=== PATIENT | female | born 1950 | race Caucasian/White ===

== ENCOUNTER 2020-07-30 14:22 | Inpatient (IN) ==
--- NOTE | 2020-07-30 15:22 | XRay Report ---
SINGLE VIEW CHEST CLINICAL HISTORY: Sepsis. FINDINGS: An AP, portable, upright chest radiograph is compared to study dated 01/21/2014. The examin ation is degraded by portable technique and patient rotation. The heart is top normal for projectio n. The mediastinal contour is within normal limits. Chronic interstitial thickening is similar to pre vious. There is mild bibasilar atelectasis. No airspace consolidation or large pleural effusion is id entified. No pneumothorax is seen. The skeletal structures are osteopenic. The bony thorax is grossly intact. IMPRESSION: No active disease in the chest. ACT 112: Negative or not required by law. Electronically signed by: Vaibhav Bliss M.D. 07/30/2020 3:21 PM
[2020-07-30] MEDS ORDERED: AMPICILLIN/SULBACTAM SOD 3,000 MG in 0.9 % SODIUM CHLORIDE 100 ML IV STA (15:32)
[2020-07-30 15:41] LABS: Hematocrit (blood only) 43.9 % (37-47); Hemoglobin 15.1 g/dL (12.0-16.0); Mean Corpuscular Hemoglobin 32.1 pg (25-34); Mean Corpuscular Hgb Conc 34.4 g/dL (32-36); Mean Corpuscular Volume 93.4 fL (80-100); Mean Platelet Volume 10.3 fL (7.4-10.4); Platelet Count 434 K/uL (130-400); RDW Coefficient of Variation 14.9 % (11.5-14.5); RDW Standard Deviation 51.3 fL (36.4-46.3); White Blood Count 22.22 K/uL (4.8-10.8)
[2020-07-30 15:43] LABS: Base Excess VBG -1.7 mEq/L; Oxygen Saturation VBG 89.6 %; pH VBG 7.37 (7.36-7.41)
[2020-07-30 15:57] LABS: Partial Thromboplastin Ratio 1.1; Partial Thromboplastin Time 28.2 Seconds (21.0-31.0); Prothrombin Time 9.8 Seconds (9.0-12.0)
[2020-07-30 16:04] LABS: Basophils # (auto) 0.09 K/uL (0-0.2); Basophils % (auto) 0.4 %; Echinocytes 1+; Immature Granulocytes # (auto) 0.27 K/uL (0.00-0.02); Immature Granulocytes % (auto) 1.2 %; Lymphocytes # (auto) 1.61 K/uL (1.2-3.4); Lymphocytes % (auto) 7.2 %; Monocytes # (auto) 1.53 K/uL (0.11-0.59); Monocytes % (auto) 6.9 %; Neutrophils # (auto) 18.72 K/uL (1.4-6.5); Neutrophils % (auto) 84.3 %
[2020-07-30 16:17] LABS: Alanine Aminotransferase 45 U/L (12-78); Albumin Globulin Ratio 0.5 (0.9-2); Albumin Level 3.1 gm/dl (3.4-5.0); Alkaline Phosphatase 76 U/L (45-117); Aspartate Aminotransferase 50 U/L (15-37); Bilirubin,Total 0.9 mg/dl (0.2-1); Blood Urea Nitrogen 9 mg/dl (7-18); Calcium 10.1 mg/dl (8.5-10.1); Carbon Dioxide 22 mmol/L (21-32); Chloride 99 mmol/L (98-107); Est GFR (African American) 131.2 ml/min; Est GFR (Non-African American) 113.2 ml/min; Globulin 5.6 gm/dl (2.5-4.0); Glucose 105 mg/dl (70-99); Magnesium 2.1 mg/dl (1.8-2.4); Potassium 3.8 mmol/L (3.5-5.1); Sodium 133 mmol/L (136-145); Total Protein 8.7 gm/dl (6.4-8.2); Troponin I < 0.015 ng/ml (0-0.045)
[2020-07-30] MEDS ORDERED: OPTIRAY 350 500ml IV ONE (17:37)
--- NOTE | 2020-07-30 18:18 | CT Scan Report ---
CHEST CTA for PULMONARY ARTERIES CT DOSE: 499.37 mGy.cm HISTORY: Cough. Shortness of breath. TECHNIQUE: Multiaxial CT images of the chest were performed following the intravenous administration of contrast to evaluate the pulmonary arteries. Maximal intensity projection images were also obtaine d. A dose lowering technique was utilized adhering to the principles of ALARA. COMPARISON STUDY: None. FINDINGS: Minimal anterior wedging within the mid thoracic spine vertebral body which is likely chron ic. Normal caliber thoracic aorta with no evidence for dissection. The heart is normal in size. No pl eural or pericardial effusions. Nondiagnostic evaluation of the bilateral lower lobe, right middle lo be, and lingular distal segmental and subsegmental pulmonary arteries due to the respiratory motion a rtifact. Otherwise, no filling defects within the remaining pulmonary arteries to suggest pulmonary e mbolus. Limited views of the upper abdomen demonstrate normal liver, spleen, and adrenal glands. Norm al esophagus. The heart is normal in size. There are few mildly enlarged right hilar lymph nodes. Thi s may be reactive. Dominant lymph node measures 1 cm in short axis diameter. A single enlarged right paratracheal lymph node measuring 11 mm. No pneumothorax. Small amount of mucoid material within the trachea and bilateral mainstem bronchi. Near-complete opacification of the bilateral distal lower lob e bronchi. There are small patchy groundglass densities within the left lower lobe. Patchy consolidat sabino density seen within the right lower lobe. This favors a pneumonia and could be secondary to aspir ation. No pneumothorax. A 4 mm groundglass nodule within the right upper lobe on image 148. A 4 mm no dule within the right upper lobe on image 133. IMPRESSION: 1. No evidence for pulmonary embolus with limitations as described above. 2. Opacified bilateral lower lobe bronchi with right greater than left patchy airspace opacities. Thi s favors a pneumonia and may be secondary to aspiration. 3. There are 2 subcentimeter indeterminate pulmonary nodules within the right upper lobe measuring 4 mm. Please refer to the chart below for recommended follow-up. 5. A single enlarged right paratracheal lymph node and mild right hilar lymphadenopathy. This may be reactive to the suspected pneumonia. Please refer to below summary of Fleischner criteria recommendations for follow-up of incidental CT n odules Amy Anguiano, Guidelines for management of small pulmonary nodules detected on CT scans: A sta tement from the Fleischner Society, Radiology 237: [phone].) SOLID NODULES Solitary nodule size: <6 mm * Low risk patients: no follow-up needed * high risk patients: optional CT at 12 months Solitary nodule size: 6-8 mm * Low risk patients: follow-up at 6-12 months, then consider further follow-up at 18-24 months * high risk patients: initial follow-up CT at 6-12 months and then at 18-24 months if no change Solitary nodule size: >8 mm * either low or high risk patients - consider follow-up CT at 3 months, and/or CT-PET, and/or biopsy Multiple nodules size: <6 mm * Low risk patients: no routine follow-up * high risk patients: optional CT at 12 months Multiple nodules size: 6-8 mm * Low risk patients: follow-up at 3-6 months, then consider further follow-up at 18-24 months * high risk patients: follow-up at 3-6 months, then at 18-24 months if no change Multiple nodules size: >8 mm * Low risk patients: follow-up at 3-6 months, then consider further follow-up at 18-24 months * high risk patients: follow-up at 3-6 months, then at 18-24 months if no change Note: newly detected indeterminate nodule in persons 35 years of age or older. * Low risk patients: minimal or absent history of smoking and/or other known risk factors * high risk patients: history of smoking or of other known risk factors (e.g. first degree relative with lung cancer, or exposure to asbestos, radon, uranium) * if a nodule up to 8 mm is partly solid or is ground glass further follow-up is required after 24 m onths to exclude possible slow growing adenocarcinoma (MARC) SUBSOLID NODULES Solitary pure ground-glass nodule * nodule size <6 mm - no CT follow-up required * nodule size >=6 mm - follow-up CT at 6-12 months, then every 2 years until 5 years Solitary part-solid nodule * nodule size <6 mm - no CT follow-up required * nodule size >=6 mm - follow-up CT at 3-6 months. If unchanged, and solid component remains <6 mm, then annual follow-up for 5 years Multiple subsolid nodules * nodule size <6 mm - follow-up CT at 3-6 months, consider further follow-up at 2 and 4 years if sta ble * nodule size >=6 mm - follow-up CT at 3-6 months, subsequent management based on the most suspiciou s nodule(s) ACT 112: Negative or not required by law. Electronically signed by: Everton Theodore M.D. 07/30/2020 6:16 PM
[2020-07-30] MEDS ORDERED: methylPREDNISolone 20 MG in SYRINGE 0 ML IV ONE (19:45)
--- NOTE | 2020-07-30 19:56 | Emergency Department Note ---
History of Present Illness General Chief complaint: Shortness of Breath/Dyspnea Stated complaint: SEVERE CONGEST,DIFF SLEEPING,SOB Time Seen by Provider: 07/30/20 14:47 History of Present Illness Provider complaint: Difficulty breathing Onset (ago): week(s) 1 Location: chest Associated symptoms: + cough and + shortness of breath; no chest pain, no fever/chills, no headaches, no nausea/vomiting, no rash, no seizure, no syncope and no weakness 70-year-old female presents emergency department with shortness of breath. Patient reports her symptoms were gone for last week. Patient reports that she started off with sinus congestion feels like it is moved down into her chest. Patient reports cough. She reports no fevers. She reports difficulty breathing. Patient does have a history of MS. No vomiting. Home Medications Medication Instructions Recorded Confirmed Type water for irrigation, sterile 1,000 ml IRRIGATION DAILY PRN ml 03/31/20 History alendronate 70 mg PO .WK 07/30/20 07/30/20 History ascorbic acid (vitamin C) 0 mg PO DAILY 07/30/20 07/30/20 History atorvastatin 40 mg PO DAILY 07/30/20 07/30/20 History diazepam 10 mg PO DAILY 07/30/20 07/30/20 History gabapentin 300 mg PO BID 07/30/20 07/30/20 History lutein 0 mg PO DAILY 07/30/20 07/30/20 History menthol-zinc oxide [Calmoseptine] 1 applic TOPICAL QID PRN 07/30/20 07/30/20 History polyethylene glycol 3350 See Rx Instructions .ROUTE .COMPLEX 07/30/20 History potassium citrate 10 meq PO TID 07/30/20 07/30/20 History tizanidine 2 mg PO DAILY 07/30/20 07/30/20 History Allergies Allergy/AdvReac Type Severity Reaction Status Date / Time Sulfa (Sulfonamide Allergy Unknown BACTRIM--RA Verified 07/30/20 17:01 Antibiotics) SH Past Med/Surg History Medical History (Updated 07/30/20 @ 20:05 by Yazan Barrett) Functional quadriplegia secondary to MS HLD (hyperlipidemia) Multiple sclerosis Suprapubic catheter Urinary retention Surgical History (Updated 07/30/20 @ 19:59 by Nicole Clark PA-C) History of bladder surgery Family History (Updated 07/30/20 @ 20:00 by Nicole Clark PA-C) Sister Schizophrenia Social History (Updated 07/30/20 @ 20:01 by Nicole Clark PA-C) Smoking Status: Never smoker Hx Alcohol Use: Yes Alcohol Intake Frequency: 2-4 x/Month Hx Substance Use: No Feels Safe at Home: Yes Review of Systems A total of 10 systems reviewed and were otherwise negative Physical Exam Vital Signs Vital Signs - 24 hr 07/30/20 14:31 07/30/20 14:48 07/30/20 15:30 Temperature 36.9 C Temperature Source Temporal Artery Scan Pulse Rate 106 H 107 H Pulse Rate from SpO2 Sensor 106 H Pulse Rhythm Respiratory Rate 21 17 Respiratory Effort / Characteristics Spontaneous Blood Pressure 113/77 132/88 Blood Pressure Mean 89 102 Pulse Oximetry 88 L 92 94 Oxygen Delivery Method Room Air Nasal Cannula Oxygen Flow Rate 2 Sepsis Recent Fever Within 48 Hours No Sepsis New/Unexplained Change in Mental Status No Sepsis Action Taken by Nursing Physician Notified 07/30/20 15:48 07/30/20 16:00 07/30/20 16:04 Temperature Temperature Source Pulse Rate 107 H 105 H 103 H Pulse Rate from SpO2 Sensor 107 H 105 H Pulse Rhythm Regular Respiratory Rate 21 19 18 Respiratory Effort / Characteristics Non-Labored Blood Pressure 129/79 Blood Pressure Mean 95 Pulse Oximetry 95 95 96 Oxygen Delivery Method Room Air Oxygen Flow Rate Sepsis Recent Fever Within 48 Hours Sepsis New/Unexplained Change in Mental Status Sepsis Action Taken by Nursing 07/30/20 16:30 07/30/20 16:36 07/30/20 17:00 Temperature Temperature Source Pulse Rate 103 H 104 H Pulse Rate from SpO2 Sensor 107 H 103 H Pulse Rhythm Respiratory Rate 19 18 Respiratory Effort / Characteristics Non-Labored Non-Labored Blood Pressure 124/89 118/94 Blood Pressure Mean 100 102 Pulse Oximetry 95 93 97 Oxygen Delivery Method Room Air Room Air Oxygen Flow Rate Sepsis Recent Fever Within 48 Hours Sepsis New/Unexplained Change in Mental Status Sepsis Action Taken by Nursing 07/30/20 17:30 07/30/20 18:00 07/30/20 18:15 Temperature Temperature Source Pulse Rate 103 H 104 H Pulse Rate from SpO2 Sensor 105 H 103 H 104 H Pulse Rhythm Respiratory Rate 16 19 18 Respiratory Effort / Characteristics Non-Labored Non-Labored Blood Pressure 131/80 120/82 Blood Pressure Mean 97 94 Pulse Oximetry 96 96 96 Oxygen Delivery Method Room Air Room Air Oxygen Flow Rate Sepsis Recent Fever Within 48 Hours Sepsis New/Unexplained Change in Mental Status Sepsis Action Taken by Nursing 07/30/20 18:30 07/30/20 19:00 07/30/20 19:30 Temperature Temperature Source Pulse Rate 96 H 106 H 106 H Pulse Rate from SpO2 Sensor 105 H 106 H 106 H Pulse Rhythm Respiratory Rate 17 17 18 Respiratory Effort / Characteristics Blood Pressure 127/90 122/69 107/81 Blood Pressure Mean 102 86 89 Pulse Oximetry 95 92 91 Oxygen Delivery Method Nasal Cannula Oxygen Flow Rate 2 Sepsis Recent Fever Within 48 Hours Sepsis New/Unexplained Change in Mental Status Sepsis Action Taken by Nursing Physical Exam GENERAL: She is oriented to person, place, and time. She appears well-developed and well-nourished. She does not appear distressed. HENT: Exam performed. -Head: Normocephalic and atraumatic. -Right Ear: External ear normal. No mastoid tenderness. -Left Ear: External ear normal. No mastoid tenderness. -Mouth/Throat: The oropharynx is clear and moist. No trismus in the jaw. No dental abscesses or uvula swelling. No oropharyngeal exudate or tonsillar abscesses. EYES: Conjunctivae and EOM are normal. Pupils are equal, round, and reactive to light. Right eye exhibits no discharge. Left eye exhibits no discharge. No scleral icterus. NECK: Normal range of motion. Neck supple. No JVD present. No spinous process tenderness present. No carotid bruit present. No rigidity. No tracheal deviation and normal range of motion present. No Brudzinski's sign and no Kernig's sign noted. CV: Tachycardic rate, regular rhythm, normal heart sounds and intact distal pulses. There is no peripheral edema. Palpable radial pulses bue. PULM/CHEST: Rhonchi bilaterally. Expiratory wheezes bilaterally. -Chest Wall: She exhibits no tenderness. ABD: The abdomen is soft. Bowel sounds are normal. She has no distension. No mass is present. There is no tenderness. There is no rebound, no guarding, no Bartlett's sign and no tenderness at McBurney's point. Rovsig negative MUSC/SKEL: Normal range of motion. There is no peripheral edema, tenderness or deformity. LYMPH: No cervical adenopathy. NEURO: She is alert and oriented to person, place, and time. She has normal strength. No cranial nerve deficit or sensory deficit. Coordination and gait normal. GCS eye subscore is 4. GCS verbal subscore is 5. GCS motor subscore is 6. Cerebellar tests wnl. SKIN: Skin is warm and dry. She is not diaphoretic. PSYCH: She has a normal mood and affect. Behavior is normal. Judgment and thought content normal. Course Course 1447: The patient was evaluated in room . A complete history and physical exam was performed Cardiac monitoring: An order was placed for continuous cardiac monitoring. The monitor shows a rate of 110 with sinus tachycardia rhythm Patient was found to be hypoxic on room air, patient was placed on supplemental oxygen via nasal cannula which improved her oxygen saturation. It is thought that the patient could have suffered from aspiration pneumonia given her lung sounds and her history of MS. Patient will be empirically treated with antibiotics given her hypoxia. 2000: Vital signs stable on supplemental oxygen. Labs show a leukocytosis of 22 .2. Imaging shows aspiration pneumonia. Patient treated with Unasyn. Patient will be admitted to the [facility] Hospitalist team Dr. Qureshi notified. Administered Medications Lactated Ringer's (Lr) 1,000 mls @ 500 mls/hr IV .Q2H ONE Stop: 07/30/20 21:59 Last Admin: 07/30/20 19:56 Dose: 500 mls/hr Documented by: [id number] Discontinued Medications Ampicillin Sodium/Sulbactam Sodium 3,000 mg/ Sodium Chloride 108 mls @ 200 mls/hr IV NOW STA; Protocol Stop: 07/30/20 16:04 Last Infusion: 07/30/20 16:53 Dose: 200 mls/hr Documented by: [id number] Admin: 07/30/20 15:58 Dose: 200 mls/hr Documented by: [id number] Methylprednisolone 20 mg/ (Syringe) 0.32 mls @ 1.5 mls/min IV ONE ONE Stop: 07/30/20 19:46 Last Admin: 07/30/20 19:46 Dose: 1.5 mls/min Documented by: [id number] Ioversol (Optiray 350 500ml) 114 ml IV ONCE ONE Stop: 07/30/20 17:38 Last Admin: 07/30/20 17:38 Dose: 1 ml Documented by: [id number] Critical Care Time Critical Care Time: Yes Total Critical Care Time: 69 I have personally spent greater than 69 minutes of critical care time in the direct management of this patient. This includes bedside care, interpretation of diagnostic studies, and testing, discussion with consultants, patient, and family members, and other required patient management activities. This 69 minutes is in excess of all separately billable procedures. Medical Decision Making Laboratory Data Result diagrams: 07/30/20 15:30 07/30/20 15:30 Lab Results 07/30/20 07/30/20 07/30/20 Range/Units 15:30 15:30 15:30 WBC (4.8-10.8) K/uL RBC (4.2-5.4) M/uL Hgb (12.0-16.0) g/dL Hct (37-47) % MCV (80-100) fL MCH (25-34) pg MCHC (32-36) g/dL RDW Std Deviation (36.4-46.3) fL RDW Coeff of David (11.5-14.5) % Plt Count (130-400) K/uL MPV (7.4-10.4) fL Immature Gran % (Auto) % Neut % (Auto) % Lymph % (Auto) % [place] % (Auto) % Eos % (Auto) % Baso % (Auto) % Neut # (Auto) (1.4-6.5) K/uL Lymph # (Auto) (1.2-3.4) K/uL [place] # (Auto) (0.11-0.59) K/uL Eos # (Auto) (0-0.5) K/uL Baso # (Auto) (0-0.2) K/uL Immature Gran # (Auto) (0.00-0.02) K/uL Echinocytes PT (9.0-12.0) Seconds INR (0.9-1.1) APTT (21.0-31.0) Seconds PTT Ratio VBG pH 7.37 (7.36-7.41) VBG pCO2 41 (38-50) mmHg VBG pO2 52 mmHg VBG HCO3 24 mmol/L VBG O2 Saturation 89.6 % VBG Base Excess -1.7 mEq/L Barometric Pressure 742.4 mm/Hg Sodium 133 L (136-145) mmol/L Potassium 3.8 (3.5-5.1) mmol/L Chloride 99 (98-107) mmol/L Carbon Dioxide 22 (21-32) mmol/L Anion Gap 12.0 H (3-11) BUN 9 (7-18) mg/dl Creatinine 0.33 L (0.6-1.2) mg/dl Est Cr Clr Drug Dosing Not Reportable Est GFR ( Amer) 131.2 ml/min Est GFR (Non-Af Amer) 113.2 ml/min BUN/Creatinine Ratio 28.0 H (10-20) Glucose 105 H (70-99) mg/dl Lactate (0.4-2.0) mmol/L Calcium 10.1 (8.5-10.1) mg/dl Magnesium 2.1 (1.8-2.4) mg/dl Total Bilirubin 0.9 (0.2-1) mg/dl AST 50 H (15-37) U/L ALT 45 (12-78) U/L Alkaline Phosphatase 76 (45-117) U/L Troponin I < 0.015 (0-0.045) ng/ml Total Protein 8.7 H (6.4-8.2) gm/dl Albumin 3.1 L (3.4-5.0) gm/dl Globulin 5.6 H (2.5-4.0) gm/dl Albumin/Globulin Ratio 0.5 L (0.9-2) Procalcitonin 0.19 (0-0.5) ng/ml COVID-19 Eval Order SARS-CoV-2 (PCR) (Negative) 07/30/20 07/30/20 07/30/20 Range/Units 15:30 15:30 15:30 WBC 22.22 H (4.8-10.8) K/uL RBC 4.70 (4.2-5.4) M/uL Hgb 15.1 (12.0-16.0) g/dL Hct 43.9 (37-47) % MCV 93.4 (80-100) fL MCH 32.1 (25-34) pg MCHC 34.4 (32-36) g/dL RDW Std Deviation 51.3 H (36.4-46.3) fL RDW Coeff of David 14.9 H (11.5-14.5) % Plt Count 434 H (130-400) K/uL MPV 10.3 (7.4-10.4) fL Immature Gran % (Auto) 1.2 % Neut % (Auto) 84.3 % Lymph % (Auto) 7.2 % [place] % (Auto) 6.9 % Eos % (Auto) 0.0 % Baso % (Auto) 0.4 % Neut # (Auto) 18.72 H (1.4-6.5) K/uL Lymph # (Auto) 1.61 (1.2-3.4) K/uL [place] # (Auto) 1.53 H (0.11-0.59) K/uL Eos # (Auto) 0.00 (0-0.5) K/uL Baso # (Auto) 0.09 (0-0.2) K/uL Immature Gran # (Auto) 0.27 H (0.00-0.02) K/uL Echinocytes 1+ PT 9.8 (9.0-12.0) Seconds INR 1.0 (0.9-1.1) APTT 28.2 (21.0-31.0) Seconds PTT Ratio 1.1 VBG pH (7.36-7.41) VBG pCO2 (38-50) mmHg VBG pO2 mmHg VBG HCO3 mmol/L VBG O2 Saturation % VBG Base Excess mEq/L Barometric Pressure mm/Hg Sodium (136-145) mmol/L Potassium (3.5-5.1) mmol/L Chloride (98-107) mmol/L Carbon Dioxide (21-32) mmol/L Anion Gap (3-11) BUN (7-18) mg/dl Creatinine (0.6-1.2) mg/dl Est Cr Clr Drug Dosing Est GFR ( Amer) ml/min Est GFR (Non-Af Amer) ml/min BUN/Creatinine Ratio (10-20) Glucose (70-99) mg/dl Lactate 1.1 (0.4-2.0) mmol/L Calcium (8.5-10.1) mg/dl Magnesium (1.8-2.4) mg/dl Total Bilirubin (0.2-1) mg/dl AST (15-37) U/L ALT (12-78) U/L Alkaline Phosphatase (45-117) U/L Troponin I (0-0.045) ng/ml Total Protein (6.4-8.2) gm/dl Albumin (3.4-5.0) gm/dl Globulin (2.5-4.0) gm/dl Albumin/Globulin Ratio (0.9-2) Procalcitonin (0-0.5) ng/ml COVID-19 Eval Order SARS-CoV-2 (PCR) (Negative) 07/30/20 07/30/20 Range/Units 15:57 15:57 WBC (4.8-10.8) K/uL RBC (4.2-5.4) M/uL Hgb (12.0-16.0) g/dL Hct (37-47) % MCV (80-100) fL MCH (25-34) pg MCHC (32-36) g/dL RDW Std Deviation (36.4-46.3) fL RDW Coeff of David (11.5-14.5) % Plt Count (130-400) K/uL MPV (7.4-10.4) fL Immature Gran % (Auto) % Neut % (Auto) % Lymph % (Auto) % [place] % (Auto) % Eos % (Auto) % Baso % (Auto) % Neut # (Auto) (1.4-6.5) K/uL Lymph # (Auto) (1.2-3.4) K/uL [place] # (Auto) (0.11-0.59) K/uL Eos # (Auto) (0-0.5) K/uL Baso # (Auto) (0-0.2) K/uL Immature Gran # (Auto) (0.00-0.02) K/uL Echinocytes PT (9.0-12.0) Seconds INR (0.9-1.1) APTT (21.0-31.0) Seconds PTT Ratio VBG pH (7.36-7.41) VBG pCO2 (38-50) mmHg VBG pO2 mmHg VBG HCO3 mmol/L VBG O2 Saturation % VBG Base Excess mEq/L Barometric Pressure mm/Hg Sodium (136-145) mmol/L Potassium (3.5-5.1) mmol/L Chloride (98-107) mmol/L Carbon Dioxide (21-32) mmol/L Anion Gap (3-11) BUN (7-18) mg/dl Creatinine (0.6-1.2) mg/dl Est Cr Clr Drug Dosing Est GFR ( Amer) ml/min Est GFR (Non-Af Amer) ml/min BUN/Creatinine Ratio (10-20) Glucose (70-99) mg/dl Lactate (0.4-2.0) mmol/L Calcium (8.5-10.1) mg/dl Magnesium (1.8-2.4) mg/dl Total Bilirubin (0.2-1) mg/dl AST (15-37) U/L ALT (12-78) U/L Alkaline Phosphatase (45-117) U/L Troponin I (0-0.045) ng/ml Total Protein (6.4-8.2) gm/dl Albumin (3.4-5.0) gm/dl Globulin (2.5-4.0) gm/dl Albumin/Globulin Ratio (0.9-2) Procalcitonin (0-0.5) ng/ml COVID-19 Eval Order Covid19 at [facility] SARS-CoV-2 (PCR) NEGATIVE (Negative) Imaging Data Radiologist's Impression: Chest X-Ray 07/30/20 14:49 SINGLE VIEW CHEST CLINICAL HISTORY: Sepsis. FINDINGS: An AP, portable, upright chest radiograph is compared to study dated 01/21/2014. The examination is degraded by portable technique and patient rotation. The heart is top normal for projection. The mediastinal contour is within normal limits. Chronic interstitial thickening is similar to previous. There is mild bibasilar atelectasis. No airspace consolidation or large pleural effusion is identified. No pneumothorax is seen. The skeletal structures are osteopenic. The bony thorax is grossly intact. IMPRESSION: No active disease in the chest. ACT 112: Negative or not required by law. Electronically signed by: Vaibhav Bliss M.D. 07/30/2020 3:21 PM Chest CTA 07/30/20 15:32 CHEST CTA for PULMONARY ARTERIES CT DOSE: 499.37 mGy.cm HISTORY: Cough. Shortness of breath. TECHNIQUE: Multiaxial CT images of the chest were performed following the intravenous administration of contrast to evaluate the pulmonary arteries. Maximal intensity projection images were also obtained. A dose lowering technique was utilized adhering to the principles of ALARA. COMPARISON STUDY: None. FINDINGS: Minimal anterior wedging within the mid thoracic spine vertebral body which is likely chronic. Normal caliber thoracic aorta with no evidence for dissection. The heart is normal in size. No pleural or pericardial effusions. Nondiagnostic evaluation of the bilateral lower lobe, right middle lobe, and lingular distal segmental and subsegmental pulmonary arteries due to the respiratory motion artifact. Otherwise, no filling defects within the remaining pulmonary arteries to suggest pulmonary embolus. Limited views of the upper abdomen demonstrate normal liver, spleen, and adrenal glands. Normal esophagus. The heart is normal in size. There are few mildly enlarged right hilar lymph nodes. This may be reactive. Dominant lymph node measures 1 cm in short axis diameter. A single enlarged right paratracheal lymph node measuring 11 mm. No pneumothorax. Small amount of mucoid material within the trachea and bilateral mainstem bronchi. Near-complete opacification of the bilateral distal lower lobe bronchi. There are small patchy groundglass densities within the left lower lobe. Patchy consolidative density seen within the right lower lobe. This favors a pneumonia and could be secondary to aspiration. No pneumothorax. A 4 mm groundglass nodule within the right upper lobe on image 148. A 4 mm nodule within the right upper lobe on image 133. IMPRESSION: 1. No evidence for pulmonary embolus with limitations as described above. 2. Opacified bilateral lower lobe bronchi with right greater than left patchy airspace opacities. This favors a pneumonia and may be secondary to aspiration. 3. There are 2 subcentimeter indeterminate pulmonary nodules within the right upper lobe measuring 4 mm. Please refer to the chart below for recommended follow-up. 5. A single enlarged right paratracheal lymph node and mild right hilar lymphadenopathy. This may be reactive to the suspected pneumonia. Please refer to below summary of Fleischner criteria recommendations for follow- up of incidental CT nodules (Angelina Anguiano, Guidelines for management of small pulmonary nodules detected on CT scans: A statement from the Fleischner Society, Radiology 237: [phone].) SOLID NODULES Solitary nodule size: <6 mm * Low risk patients: no follow-up needed * high risk patients: optional CT at 12 months Solitary nodule size: 6-8 mm * Low risk patients: follow-up at 6-12 months, then consider further follow-up at 18-24 months * high risk patients: initial follow-up CT at 6-12 months and then at 18-24 months if no change Solitary nodule size: >8 mm * either low or high risk patients - consider follow-up CT at 3 months, and/or CT-PET, and/or biopsy Multiple nodules size: <6 mm * Low risk patients: no routine follow-up * high risk patients: optional CT at 12 months Multiple nodules size: 6-8 mm * Low risk patients: follow-up at 3-6 months, then consider further follow-up at 18-24 months * high risk patients: follow-up at 3-6 months, then at 18-24 months if no change Multiple nodules size: >8 mm * Low risk patients: follow-up at 3-6 months, then consider further follow-up at 18-24 months * high risk patients: follow-up at 3-6 months, then at 18-24 months if no c hange Note: newly detected indeterminate nodule in persons 35 years of age or older. * Low risk patients: minimal or absent history of smoking and/or other known risk factors * high risk patients: history of smoking or of other known risk factors (e.g. first degree relative with lung cancer, or exposure to asbestos, radon, uranium) * if a nodule up to 8 mm is partly solid or is ground glass further follow-up is required after 24 months to exclude possible slow growing adenocarcinoma (MARC) SUBSOLID NODULES Solitary pure ground-glass nodule * nodule size <6 mm - no CT follow-up required * nodule size >=6 mm - follow-up CT at 6-12 months, then every 2 years until 5 years Solitary part-solid nodule * nodule size <6 mm - no CT follow-up required * nodule size >=6 mm - follow-up CT at 3-6 months. If unchanged, and solid component remains <6 mm, then annual follow-up for 5 years Multiple subsolid nodules * nodule size <6 mm - follow-up CT at 3-6 months, consider further follow-up at 2 and 4 years if stable * nodule size >=6 mm - follow-up CT at 3-6 months, subsequent management based on the most suspicious nodule(s) ACT 112: Negative or not required by law. Electronically signed by: Everton Theodore M.D. 07/30/2020 6:16 PM ECG Data Indication: + SOB/dyspnea Rate (beats per minute): 106 Rhythm: + sinus with SA ECG ST segments: + Normal ST segments Additional Comments: DC 184 QRS 120 QTc 549 MDM Narrative 1447: The patient was evaluated in room . A complete history and physical exam was performed Cardiac monitoring: An order was placed for continuous cardiac monitoring. The monitor shows a rate of 110 with sinus tachycardia rhythm Patient was found to be hypoxic on room air, patient was placed on supplemental oxygen via nasal cannula which improved her oxygen saturation. It is thought that the patient could have suffered from aspiration pneumonia given her lung sounds and her history of MS. Patient will be empirically treated with antibiotics given her hypoxia. 2000: Vital signs stable on supplemental oxygen. Labs show a leukocytosis of 22.2. Imaging shows aspiration pneumonia. Patient treated with Unasyn. Patient will be admitted to the [facility] Hospitalist team Dr. Qureshi notified. Impression & Plan Hypoxia, Aspiration pneumonia Discharge Plan Visit Data Chief Complaint: Shortness of Breath/Dyspnea Stated Complaint: SEVERE CONGEST,DIFF SLEEPING,SOB ED Provider: Yazan Barrett Discharge Problem: Hypoxia, Aspiration pneumonia Patient Disposition: Admitted As Inpatient Forms Stand Alone Forms: [facility] Prescriptions Prescriptions: No Action water for irrigation, sterile Solution 1,000 ml irrigation DAILY PRNRF: 0 tizanidine 2 mg tablet 2 mg PO DAILY RF: 0 gabapentin 300 mg capsule 300 mg PO BID RF: 0 alendronate 70 mg tablet 70 mg PO .WK RF: 0 diazepam 10 mg tablet 10 mg PO DAILY RF: 0 potassium citrate 10 mEq (1,080 mg) tablet extended release 10 meq PO TID RF: 0 atorvastatin 40 mg tablet 40 mg PO DAILY RF: 0 polyethylene glycol 3350 17 gram/dose powder See Rx Instructions .ROUTE .COMPLEX RF: 0 lutein 10 mg Tablet 0 mg PO DAILY RF: 0 ascorbic acid (vitamin C) 100 mg Tablet 0 mg PO DAILY RF: 0 Calmoseptine 0.44-20.6 % Ointment 1 applic TOPICAL QID PRN (Reason: .WOUND CARE) RF: 0 Referrals Referrals: Danielle Yadav DO [Primary Care Provider] - Discharge Problem: Aspiration pneumonia Qualifiers: Aspiration pneumonia type: unspecified Laterality: right Lung location: unspecified part of lung Qualified Code(s): J69.0 - Pneumonitis due to inhalation of food and vomit
[2020-07-30] MEDS ORDERED: LACTATED RINGER'S 1,000 ML IV ONE (20:00)
--- NOTE | 2020-07-30 20:04 | History & Physical Report ---
Date of Service July 30, 2020 Assessment & Plan (1) Pneumonia: (2) Multiple sclerosis: (3) Functional quadriplegia secondary to MS: (4) HLD (hyperlipidemia): History and PE completed by myself, Nicole Clark PA-C. Assessment and plan per Dr Bolanos. See addendum History of Present Illness Chief Complaint: SOB Primary Care Provider: Danielle Yadav DO Patient is 70 y/o F with PMH MS with some cognitive impairment, essentially quadriplegic secondary to MS, neurogenic bladder has suprapubic catheter, HLD, depression presented to ER for shortness of breath. Reports that 5 days ago she started with rhinorrhea which progressed to nasal congestion and sinus pressure. Then started with productive cough of clear sputum. Past 2 days with noted shortness of breath which worsened today. Patient states was around her grandson who had URI symptoms as well. Patient reports 2 doses COVID-19 vaccine. Denies any noted fever or chills. Patient has noted progressive problems with swallowing dry foods over the last several years with her MS, however she denies any recent choking. Denies diaphoresis, N/V/D, ESPINOZA, dizziness, syncope, vision changes, neck pain, CP, palpitations, hemoptysis, otalgia, abdominal pain, extremity edema, rashes, noted hematuria or cloudy urine. In ER patient afebrile, P: 106, BP 113/77, 88% on room air up to 95% on 2 L. WBC: 22, lactate: 1.1, procalcitonin: 0.19, negative COVID-19. CTA chest: No evidence for pulmonary embolus. Opacified bilateral lower lobe bronchi with right greater than left patchy airspace opacities. In ER was given Unasyn. Patient will be admitted for further treatment and management. Allergies Allergy/AdvReac Type Severity Reaction Status Date / Time Sulfa (Sulfonamide Allergy Unknown BACTRIM--RA Verified 07/30/20 17:01 Antibiotics) SH Home Medications Medication Instructions Recorded Confirmed Type water for irrigation, sterile 1,000 ml IRRIGATION DAILY PRN ml 03/31/20 History alendronate 70 mg PO .WK 07/30/20 07/30/20 History ascorbic acid (vitamin C) 0 mg PO DAILY 07/30/20 07/30/20 History atorvastatin 40 mg PO DAILY 07/30/20 07/30/20 History diazepam 10 mg PO HS 07/30/20 07/30/20 History gabapentin 300 mg PO BID 07/30/20 07/30/20 History lutein 0 mg PO DAILY 07/30/20 07/30/20 History menthol-zinc oxide [Calmoseptine] 1 applic TOPICAL QID PRN 07/30/20 07/30/20 History polyethylene glycol 3350 See Rx Instructions .ROUTE .COMPLEX 07/30/20 History potassium citrate 10 meq PO TID 07/30/20 07/30/20 History tizanidine 2 mg PO DAILY 07/30/20 07/30/20 History Past Med/Surg History Medical History (Updated 07/30/20 @ 20:05 by Yazan Barrett) Functional quadriplegia secondary to MS HLD (hyperlipidemia) Multiple sclerosis Suprapubic catheter Urinary retention Surgical History (Updated 07/30/20 @ 19:59 by Nicole Clark PA-C) History of bladder surgery Family History (Updated 07/30/20 @ 20:00 by Nicole Clark PA-C) Sister Schizophrenia Social History (Updated 07/30/20 @ 20:01 by Nicole Clark PA-C) Smoking Status: Never smoker Second Hand Exposure: No; Do You Dip or Chew Tobacco: No; Hx Alcohol Use: Yes Alcohol type: beer Alcohol Intake Frequency: 2-4 x/Month Hx Substance Use: No Preferred Language: Ethiopian Urologist Physician Required: No Beliefs That Will Affect Care: None Current Living Situation: Spouse Feels Safe at Home: Yes Safety Concerns: Feels Safe At This Time Assistive Devices: Glasses, Mechanical Lift and Wheelchair Review of Systems Review of Systems: All systems reviewed & are unremarkable except as noted in HPI & below Physical Exam Physical Exam: General: no distress, WDWN Head: normocephalic, atraumatic Eyes:conjunctiva non-injected, anicteric ENT: normal inspection external ears, nose, mucous membranes moist Neck: supple, trachea midline, non-tender Lungs: clear, no respiratory distress on 2 L oxygen via NC, +diminished breath sounds right base CV: RRR, no murmur, no pretibial edema Abd: +suprapubic cath in place, normal BS, soft, non-tender Ext: no cyanosis, no calf tenderness Neuro: A&O x 3, +contracted hands, +weakness bilateral arms and legs (chronic from MS), normal affect Skin: warm, dry Results & Data Results & Data ([facility]) Vital Signs (Past 12 Hours) Vital Signs Temp Pulse Resp BP Pulse Ox 07/30/20 19:30 106 H 18 107/81 91 07/30/20 19:00 106 H 17 122/69 92 07/30/20 18:30 96 H 17 127/90 95 07/30/20 18:15 104 H 18 96 07/30/20 18:00 103 H 19 120/82 96 07/30/20 17:30 16 131/80 96 07/30/20 17:00 104 H 18 118/94 97 07/30/20 16:36 103 H 19 124/89 93 07/30/20 16:30 95 07/30/20 16:04 103 H 18 96 07/30/20 16:00 105 H 19 129/79 95 07/30/20 15:48 107 H 21 95 07/30/20 15:30 107 H 17 132/88 94 07/30/20 14:48 92 07/30/20 14:31 36.9 C 106 H 21 113/77 88 L Laboratory Results Short CBC 07/30/20 Range/Units 15:30 WBC 22.22 H (4.8-10.8) K/uL Hgb 15.1 (12.0-16.0) g/dL Hct 43.9 (37-47) % Plt Count 434 H (130-400) K/uL BMP 07/30/20 15:30 Sodium 133 L Potassium 3.8 Chloride 99 Carbon Dioxide 22 BUN 9 Creatinine 0.33 L Glucose 105 H Calcium 10.1 Cardiac Enzymes 07/30/20 Range/Units 15:30 Troponin I < 0.015 (0-0.045) ng/ml Liver Function 07/30/20 Range/Units 15:30 Total Bilirubin 0.9 (0.2-1) mg/dl AST 50 H (15-37) U/L ALT 45 (12-78) U/L Alkaline Phosphatase 76 (45-117) U/L Albumin 3.1 L (3.4-5.0) gm/dl Diagnostic Findings Chest X-Ray 07/30/20 14:49 SINGLE VIEW CHEST CLINICAL HISTORY: Sepsis. FINDINGS: An AP, portable, upright chest radiograph is compared to study dated 01/21/2014. The examination is degraded by portable technique and patient rotation. The heart is top normal for projection. The mediastinal contour is within normal limits. Chronic interstitial thickening is similar to previous. There is mild bibasilar atelectasis. No airspace consolidation or large pleural effusion is identified. No pneumothorax is seen. The skeletal structures are osteopenic. The bony thorax is grossly intact. IMPRESSION: No active disease in the chest. ACT 112: Negative or not required by law. Electronically signed by: Vaibhav Bliss M.D. 07/30/2020 3:21 PM Chest CTA 07/30/20 15:32 CHEST CTA for PULMONARY ARTERIES CT DOSE: 499.37 mGy.cm HISTORY: Cough. Shortness of breath. TECHNIQUE: Multiaxial CT images of the chest were performed following the intravenous administration of contrast to evaluate the pulmonary arteries. Maximal intensity projection images were also obtained. A dose lowering technique was utilized adhering to the principles of ALARA. COMPARISON STUDY: None. FINDINGS: Minimal anterior wedging within the mid thoracic spine vertebral body which is likely chronic. Normal caliber thoracic aorta with no evidence for dissection. The heart is normal in size. No pleural or pericardial effusions. Nondiagnostic evaluation of the bilateral lower lobe, right middle lobe, and lingular distal segmental and subsegmental pulmonary arteries due to the respiratory motion artifact. Otherwise, no filling defects within the remaining pulmonary arteries to suggest pulmonary embolus. Limited views of the upper abdomen demonstrate normal liver, spleen, and adrenal glands. Normal esophagus. The heart is normal in size. There are few mildly enlarged right hilar lymph nodes. This may be reactive. Dominant lymph node measures 1 cm in short axis diameter. A single enlarged right paratracheal lymph node measuring 11 mm. No pneumothorax. Small amount of mucoid material within the trachea and bilateral mainstem bronchi. Near-complete opacification of the bilateral distal lower lobe bronchi. There are small patchy groundglass densities within the left lower lobe. Patchy consolidative density seen within the right lower lobe. This favors a pneumonia and could be secondary to aspiration. No pneumothorax. A 4 mm groundglass nodule within the right upper lobe on image 148. A 4 mm nodule within the right upper lobe on image 133. IMPRESSION: 1. No evidence for pulmonary embolus with limitations as described above. 2. Opacified bilateral lower lobe bronchi with right greater than left patchy airspace opacities. This favors a pneumonia and may be secondary to aspiration. 3. There are 2 subcentimeter indeterminate pulmonary nodules within the right upper lobe measuring 4 mm. Please refer to the chart below for recommended follow-up. 5. A single enlarged right paratracheal lymph node and mild right hilar lymph adenopathy. This may be reactive to the suspected pneumonia. Please refer to below summary of Fleischner criteria recommendations for follow- up of incidental CT nodules (Angelina Anguiano, Guidelines for management of small pulmonary nodules detected on CT scans: A statement from the Fleischner Society, Radiology 237: [phone].) SOLID NODULES Solitary nodule size: <6 mm * Low risk patients: no follow-up needed * high risk patients: optional CT at 12 months Solitary nodule size: 6-8 mm * Low risk patients: follow-up at 6-12 months, then consider further follow-up at 18-24 months * high risk patients: initial follow-up CT at 6-12 months and then at 18-24 months if no change Solitary nodule size: >8 mm * either low or high risk patients - consider follow-up CT at 3 months, and/or CT-PET, and/or biopsy Multiple nodules size: <6 mm * Low risk patients: no routine follow-up * high risk patients: optional CT at 12 months Multiple nodules size: 6-8 mm * Low risk patients: follow-up at 3-6 months, then consider further follow-up at 18-24 months * high risk patients: follow-up at 3-6 months, then at 18-24 months if no change Multiple nodules size: >8 mm * Low risk patients: follow-up at 3-6 months, then consider further follow-up at 18-24 months * high risk patients: follow-up at 3-6 months, then at 18-24 months if no change Note: newly detected indeterminate nodule in persons 35 years of age or older. * Low risk patients: minimal or absent history of smoking and/or other known risk factors * high risk patients: history of smoking or of other known risk factors (e.g. first degree relative with lung cancer, or exposure to asbestos, radon, uranium) * if a nodule up to 8 mm is partly solid or is ground glass further follow-up is required after 24 months to exclude possible slow growing adenocarcinoma (MARC) SUBSOLID NODULES Solitary pure ground-glass nodule * nodule size <6 mm - no CT follow-up required * nodule size >=6 mm - follow-up CT at 6-12 months, then every 2 years until 5 years Solitary part-solid nodule * nodule size <6 mm - no CT follow-up required * nodule size >=6 mm - follow-up CT at 3-6 months. If unchanged, and solid component remains <6 mm, then annual follow-up for 5 years Multiple subsolid nodules * nodule size <6 mm - follow-up CT at 3-6 months, consider further follow-up at 2 and 4 years if stable * nodule size >=6 mm - follow-up CT at 3-6 months, subsequent management based on the most suspicious nodule(s) ACT 112: Negative or not required by law. Electronically signed by: Everton Theodore M.D. 07/30/2020 6:16 PM Supervising Physician Co-Signing Physician Notes IM ATTENDING : Patient seen and examined. History obtained from patient and records. Preceding documentation by Ms. Nicole Clark PA-C reviewed. FINAL ASSESSMENT AND PLAN as follows : Severe sepsis SIRS plus hypoxemia secondary to aspiration pneumonia SPMS, slow progression as per patient Neurogenic bladder secondary to MS with chronic suprapubic catheter Mood disorder at baseline Medical telemetry Supplemental O2 CS, Unasyn followed by Augmentin course IVF Solu-Medrol 1 dose now, nebs given bronchospastic wheezing causing hypoxemia Aspiration precautions, Swallow eval DVT prophylaxis per Lovenox subcu DNR Patient request that her be updated of plan of care. Mr. Hernandez Black, contact number [phone]. Text document was generated using [employer] voice recognition software. It may contain grammatical or spelling errors. Kindly contact undersigned for clarification of any documentation item in question.
[2020-07-30] MEDS ORDERED: XOPENEX/ATROVENT 1.25mg/0.5MG NEB COMBO NEB STA (20:21)
[2020-07-30] MEDS ORDERED: LEVALBUTEROL 1.25MG/0.5ML NEB INH STA (20:31)
[2020-07-30] MEDS ORDERED: IPRATROPIUM BROMIDE NEB SOLN 0.02% 2.5 ML VIAL INH STA (20:31)
[2020-07-30] MEDS ORDERED: ACETAMINOPHEN 325 MG TAB PO PRN (21:44)
[2020-07-30] MEDS ORDERED: PROMETHAZINE HCL 12.5 MG in SODIUM CHLORIDE 0.9% 50 ML IV PRN (21:44)
[2020-07-30] MEDS ORDERED: XOPENEX/ATROVENT 1.25mg/0.5MG NEB COMBO NEB PRN (21:44)
[2020-07-30] MEDS ORDERED: NSS + 20MEQ KCL 20 MEQ/1,000 ML BAG IV ONE (22:00)
[2020-07-30] MEDS: GABAPENTIN 300 MG CAP PO SCH (22:43)
[2020-07-30] MEDS: diazePAM 5 MG TABLET PO SCH (22:43)
[2020-07-30] MEDS: AMOXICILLIN/CLAVULANATE 875 MG TAB PO SCH (22:43)
[2020-07-30] MEDS: LEVALBUTEROL 1.25MG/0.5ML NEB INH PRN (23:42)
[2020-07-30] MEDS: IPRATROPIUM BROMIDE NEB SOLN 0.02% 2.5 ML VIAL INH PRN (23:43)
[2020-07-31 06:03] LABS: Hematocrit (blood only) 39.2 % (37-47); Hemoglobin 13.4 g/dL (12.0-16.0); Mean Corpuscular Hemoglobin 31.5 pg (25-34); Mean Corpuscular Hgb Conc 34.2 g/dL (32-36); Mean Platelet Volume 10.2 fL (7.4-10.4); Platelet Count 433 K/uL (130-400); RDW Coefficient of Variation 15.2 % (11.5-14.5); RDW Standard Deviation 51.4 fL (36.4-46.3); Red Blood Count 4.26 M/uL (4.2-5.4); White Blood Count 22.67 K/uL (4.8-10.8)
[2020-07-31] MEDS: LEVALBUTEROL 1.25MG/0.5ML NEB INH PRN ×2 (06:09→14:59)
[2020-07-31] MEDS: IPRATROPIUM BROMIDE NEB SOLN 0.02% 2.5 ML VIAL INH PRN ×2 (06:09→14:59)
[2020-07-31 06:33] LABS: Basophils # (auto) 0.09 K/uL (0-0.2); Basophils % (auto) 0.4 %; Immature Granulocytes # (auto) 0.34 K/uL (0.00-0.02); Immature Granulocytes % (auto) 1.5 %; Lymphocytes # (auto) 1.12 K/uL (1.2-3.4); Lymphocytes % (auto) 4.9 %; Monocytes # (auto) 0.59 K/uL (0.11-0.59); Monocytes % (auto) 2.6 %; Neutrophils # (auto) 20.53 K/uL (1.4-6.5); Neutrophils % (auto) 90.6 %
[2020-07-31 06:42] LABS: BUN Creatinine Ratio 25.2 (10-20); Calcium 9.6 mg/dl (8.5-10.1); Creatinine Clr Calc Pharmacy 153.4 ml/min; Est GFR (African American) 129.9 ml/min; Est GFR (Non-African American) 112.1 ml/min; Potassium 4.5 mmol/L (3.5-5.1)
[2020-07-31] MEDS: AMOXICILLIN/CLAVULANATE 875 MG TAB PO SCH ×2 (08:39→17:32)
[2020-07-31] MEDS: tiZANidine HCL 4 MG TABLET PO SCH (08:40)
[2020-07-31] MEDS: GABAPENTIN 300 MG CAP PO SCH ×2 (08:40→20:58)
[2020-07-31] MEDS: ATORVASTATIN 40 MG TAB PO SCH (08:40)
[2020-07-31] MEDS: ENOXAPARIN INJ 40 MG/0.4 ML SYR SQ SCH (08:41)
[2020-07-31] MEDS ORDERED: AUGMENTIN CONSULT PHARMACY SCH (09:00)
[2020-07-31] MEDS ORDERED: SODIUM CHLORIDE 0.65% NA SOLN 45 ML (OCEAN) PRN (14:45)
--- NOTE | 2020-07-31 15:17 | Hospitalist Progress Note ---
Date of Service July 31, 2020 Assessment & Plan (1) Pneumonia: Present on admission with worsening SOB associated with productive cough and congestion CT chest showed no evidence for pulmonary embolus. Opacified bilateral lower lobe bronchi with right greater than left patchy airspace opacities. Elevated WBC on admission Received IV Unasyn and IV solumerol in the ER Currently on Amoxicillin BID, Will continue Blood cx pending Continue Neb treatment Will add guaifenesin and nasal saline Will send for sputum cx Continue oxygen supplement for now Speech consulted recommended regular diet, with extra time for slow rate intake Continue monitor closely (2) Multiple sclerosis: (3) Functional quadriplegia secondary to MS: Stable (4) HLD (hyperlipidemia): Stable DVT px on Lovenox CODE status DNR Admission and Anticipated Discharge Date Admission Date: July 30, 2020 Subjective Pt was seen and examined for follow up of cough and SOB Lying in bed with no distress eating her meal Pt said that she continues to have a yellowish productive cough She continues to require oxygen supplement Denies any chest pain, palpitation, dizziness and fever Review of Systems Review of Systems: All systems reviewed & are unremarkable except as noted in Subjective Physical Exam Physical Exam: General- No acute distress Head- atraumatic Eyes- PERRL, EOMI, ENT- oropharynx clear Neck- supple, no JVD Lungs- +diminished BS Heart- regular rhythm; no murmur Abdomen- normal bowel sounds, soft, nontender Extremities- no calf tenderness Neuro- alert, oriented x 3; PERRL, EOMI; no facial palsy; no dysarthria Skin- warm & dry Results & Data Results & Data ([facility]) Vital Signs (Past 12 Hours) Vital Signs Temp Pulse Pulse Resp BP Pulse Ox 07/31/20 15:02 111 H 20 95 07/31/20 12:00 37.4 C 106 H 20 122/78 92 07/31/20 07:56 37.3 C 108 H 20 126/77 91 07/31/20 06:12 99 H 15 93 07/31/20 04:00 36.7 C 94 H 20 114/77 92
[2020-07-31] MEDS: SODIUM CHLORIDE 0.65% NA SOLN 45 ML (OCEAN) SCH (17:32)
[2020-07-31] MEDS: diazePAM 5 MG TABLET PO SCH (20:58)
--- NOTE | 2020-07-31 23:59 | Electrocardiogram Report ---
Test Reason : Blood Pressure : / mmHG Vent. Rate : 106 BPM Atrial Rate : 106 BPM P-R Int : 192 ms QRS Dur : 130 ms QT Int : 414 ms P-R-T Axes : 061 -68 044 degrees QTc Int : 549 ms Sinus tachycardia Left axis deviation Right bundle branch block Inferior infarct , age undetermined Abnormal ECG When compared with ECG of 21-JAN-2014 16:14, Vent. rate has increased BY 46 BPM Right bundle branch block is now Present Minimal criteria for Anterior infarct are no longer Present Inferior infarct is now Present Confirmed by Norbert Banks ([id number]) on 07/31/2020 11:58:50 PM Referred By: REFERRED SELF Confirmed By:Norbert Banks
[2020-08-01] MEDS: SODIUM CHLORIDE 0.65% NA SOLN 45 ML (OCEAN) SCH ×4 (06:14→17:50)
[2020-08-01] MEDS: AMOXICILLIN/CLAVULANATE 875 MG TAB PO SCH ×2 (08:25→17:39)
[2020-08-01] MEDS: GABAPENTIN 300 MG CAP PO SCH ×2 (08:25→20:09)
[2020-08-01] MEDS: guaiFENesin SUGAR FREE 200 MG/10 ML UDC PO PRN (08:26)
[2020-08-01] MEDS: ENOXAPARIN INJ 40 MG/0.4 ML SYR SQ SCH (08:26)
[2020-08-01] MEDS: tiZANidine HCL 4 MG TABLET PO SCH ×2 (08:26→20:09)
[2020-08-01] MEDS: ATORVASTATIN 40 MG TAB PO SCH (08:26)
[2020-08-01] MEDS ORDERED: Nursing to Pharmacy Communication SCH ×2 (08:30)
[2020-08-01] MEDS: LEVALBUTEROL 1.25MG/0.5ML NEB INH PRN ×2 (08:30→15:57)
[2020-08-01] MEDS: IPRATROPIUM BROMIDE NEB SOLN 0.02% 2.5 ML VIAL INH PRN ×2 (08:31→15:57)
[2020-08-01 08:46] LABS: Hematocrit (blood only) 39.8 % (37-47); Mean Corpuscular Hemoglobin 30.8 pg (25-34); Mean Corpuscular Hgb Conc 32.7 g/dL (32-36); Mean Corpuscular Volume 94.3 fL (80-100); Mean Platelet Volume 10.1 fL (7.4-10.4); Platelet Count 501 K/uL (130-400); RDW Coefficient of Variation 15.6 % (11.5-14.5); Red Blood Count 4.22 M/uL (4.2-5.4)
[2020-08-01 09:06] LABS: BUN Creatinine Ratio 55.7 (10-20); Calcium 9.7 mg/dl (8.5-10.1); Creatinine Clr Calc Pharmacy 221.1 ml/min; Est GFR (African American) 145.7 ml/min; Est GFR (Non-African American) 125.7 ml/min; Potassium 3.8 mmol/L (3.5-5.1)
[2020-08-01] MEDS ORDERED: ACETYLCYSTEINE 10% INHAL SOLN 4 ML **DISPENSED BY RESP. INH PRN (10:43)
--- NOTE | 2020-08-01 15:15 | Hospitalist Progress Note ---
Date of Service August 01, 2020 Assessment & Plan (1) Pneumonia: Present on admission with worsening SOB associated with productive cough and congestion CT chest showed no evidence for pulmonary embolus. Opacified bilateral lower lobe bronchi with right greater than left patchy airspace opacities. Elevated WBC on admission Received IV Unasyn and IV solumerol in the ER Continue Amoxicillin BID Blood cx no growth Continue Neb treatment, guaifenesin, Hypertonic nasal saline, flutter valve, Chest PT Continue oxygen supplement for now Speech consulted recommended regular diet, with extra time for slow rate intake If no improvement, consider pulm consult Continue monitor closely (2) Multiple sclerosis: (3) Functional quadriplegia secondary to MS: Stable (4) HLD (hyperlipidemia): Stable DVT px on Lovenox CODE status DNR Admission and Anticipated Discharge Date Admission Date: July 30, 2020 Subjective Pt was seen and examined for follow up of cough and SOB Pt said that she is not feeling well because she feels very congested She said that she feels weak She wants to go home because she believes that she will get better faster at home She continue to require oxygen supplement Denies any chest pain, palpitation, dizziness and fever Review of Systems Review of Systems: All systems reviewed & are unremarkable except as noted in Subjective Physical Exam Physical Exam: General- No acute distress Head- atraumatic Eyes- PERRL, EOMI, ENT- oropharynx clear Neck- supple, no JVD Lungs- +Coarse BS Heart- regular rhythm; no murmur Abdomen- normal bowel sounds, soft, nontender Extremities- no calf tenderness Neuro- alert, oriented x 3; PERRL, EOMI; no facial palsy; no dysarthria Skin- warm & dry Results & Data Results & Data ([facility]) Vital Signs (Past 12 Hours) Vital Signs Temp Pulse Resp BP Pulse Ox 08/01/20 11:49 36.7 C 93 H 22 126/84 91 08/01/20 08:31 101 H 18 90 08/01/20 07:00 37.0 C 99 H 20 116/76 91 08/01/20 03:25 36.9 C 90 20 113/72 91
[2020-08-01] MEDS: diazePAM 5 MG TABLET PO SCH (20:08)
[2020-08-01] MEDS: SODIUM CHLOR 7% 4 ML NEB NEB SCH (20:15)
[2020-08-02] MEDS: SODIUM CHLORIDE 0.65% NA SOLN 45 ML (OCEAN) SCH ×4 (01:04→17:32)
[2020-08-02] MEDS: SODIUM CHLOR 7% 4 ML NEB NEB SCH ×2 (06:57→19:44)
[2020-08-02] MEDS: IPRATROPIUM BROMIDE NEB SOLN 0.02% 2.5 ML VIAL INH PRN ×2 (06:57→19:27)
[2020-08-02] MEDS: LEVALBUTEROL 1.25MG/0.5ML NEB INH PRN ×2 (06:58→19:27)
[2020-08-02 08:12] LABS: Hematocrit (blood only) 38.9 % (37-47); Hemoglobin 12.9 g/dL (12.0-16.0); Mean Corpuscular Hemoglobin 31.2 pg (25-34); Mean Corpuscular Hgb Conc 33.2 g/dL (32-36); Mean Corpuscular Volume 94.2 fL (80-100); Mean Platelet Volume 9.5 fL (7.4-10.4); Platelet Count 477 K/uL (130-400); RDW Coefficient of Variation 15.6 % (11.5-14.5); RDW Standard Deviation 53.9 fL (36.4-46.3); Red Blood Count 4.13 M/uL (4.2-5.4); White Blood Count 16.97 K/uL (4.8-10.8)
[2020-08-02] MEDS: ATORVASTATIN 40 MG TAB PO SCH (08:47)
[2020-08-02] MEDS: AMOXICILLIN/CLAVULANATE 875 MG TAB PO SCH ×2 (08:47→17:32)
[2020-08-02] MEDS: ENOXAPARIN INJ 40 MG/0.4 ML SYR SQ SCH (08:48)
[2020-08-02] MEDS: GABAPENTIN 300 MG CAP PO SCH ×2 (08:48→20:23)
--- NOTE | 2020-08-02 16:45 | Hospitalist Progress Note ---
Date of Service August 02, 2020 Assessment & Plan (1) Pneumonia: Present on admission with worsening SOB associated with productive cough and congestion CT chest showed no evidence for pulmonary embolus. Opacified bilateral lower lobe bronchi with right greater than left patchy airspace opacities. Elevated WBC on admission Received IV Unasyn and IV solumerol in the ER Continue Amoxicillin BID Blood cx no growth Continue Neb treatment, guaifenesin, Hypertonic nasal saline, flutter valve, Chest PT Continue oxygen supplement for now Speech consulted recommended regular diet, with extra time for slow rate intake If no improvement, consider pulm consult Continue monitor closely (2) Multiple sclerosis: (3) Functional quadriplegia secondary to MS: Stable (4) HLD (hyperlipidemia): Stable DVT px on Lovenox CODE status DNR Admission and Anticipated Discharge Date Admission Date: July 30, 2020 Subjective Pt was seen and examined for follow up of cough and SOB Pt said that she feels a little better today She continues to require oxygen supplement Spoke to at bedside today and would like PT/OT to continue to work with patient Denies any chest pain, palpitation, dizziness and fever Review of Systems Review of Systems: All systems reviewed & are unremarkable except as noted in Subjective Physical Exam Physical Exam: General- No acute distress Head- atraumatic Eyes- PERRL, EOMI, ENT- oropharynx clear Neck- supple, no JVD Lungs- +Coarse BS Heart- regular rhythm; no murmur Abdomen- normal bowel sounds, soft, nontender Extremities- no calf tenderness Neuro- alert, oriented x 3; PERRL, EOMI; no facial palsy; no dysarthria Skin- warm & dry Results & Data Results [facility] ([facility]) Vital Signs (Past 12 Hours) Vital Signs Temp Pulse Resp BP Pulse Ox 08/02/20 15:12 37.6 C H 101 H 20 108/72 94 08/02/20 07:10 37.7 C H 95 H 20 101/66 90 08/02/20 07:05 93 H 18 90 08/02/20 06:18 102/67
[2020-08-02] MEDS: guaiFENesin SUGAR FREE 200 MG/10 ML UDC PO PRN (17:32)
[2020-08-02] MEDS: ACETYLCYSTEINE 10% INHAL SOLN 4 ML **DISPENSED BY RESP. INH SCH (19:29)
[2020-08-02] MEDS: diazePAM 5 MG TABLET PO SCH (20:22)
[2020-08-02] MEDS: tiZANidine HCL 4 MG TABLET PO SCH (20:23)
[2020-08-03] MEDS: SODIUM CHLORIDE 0.65% NA SOLN 45 ML (OCEAN) SCH ×4 (01:29→17:52)
[2020-08-03] MEDS: ACETYLCYSTEINE 10% INHAL SOLN 4 ML **DISPENSED BY RESP. INH SCH (07:14)
[2020-08-03] MEDS: SODIUM CHLOR 7% 4 ML NEB NEB SCH ×2 (07:15→19:29)
[2020-08-03] MEDS: IPRATROPIUM BROMIDE NEB SOLN 0.02% 2.5 ML VIAL INH PRN (07:15)
[2020-08-03] MEDS: LEVALBUTEROL 1.25MG/0.5ML NEB INH PRN ×2 (07:15→19:29)
[2020-08-03] MEDS: AMOXICILLIN/CLAVULANATE 875 MG TAB PO SCH ×2 (08:22→16:25)
[2020-08-03] MEDS: GABAPENTIN 300 MG CAP PO SCH ×2 (08:22→20:29)
[2020-08-03] MEDS: ENOXAPARIN INJ 40 MG/0.4 ML SYR SQ SCH (08:23)
[2020-08-03] MEDS: guaiFENesin SUGAR FREE 200 MG/10 ML UDC PO PRN (08:23)
[2020-08-03] MEDS: ATORVASTATIN 40 MG TAB PO SCH (08:23)
[2020-08-03 10:42] LABS: Hematocrit (blood only) 38.4 % (37-47); Hemoglobin 12.7 g/dL (12.0-16.0); Mean Corpuscular Hemoglobin 30.8 pg (25-34); Mean Corpuscular Hgb Conc 33.1 g/dL (32-36); Mean Platelet Volume 9.7 fL (7.4-10.4); Platelet Count 386 K/uL (130-400); RDW Coefficient of Variation 15.4 % (11.5-14.5); RDW Standard Deviation 53.1 fL (36.4-46.3); Red Blood Count 4.13 M/uL (4.2-5.4); White Blood Count 16.38 K/uL (4.8-10.8)
[2020-08-03] MEDS: FLUTICASONE PROPIONATE NA SPR 16 GM BTL SCH ×2 (16:25→20:30)
--- NOTE | 2020-08-03 17:04 | Hospitalist Progress Note ---
Date of Service August 03, 2020 Assessment & Plan (1) Pneumonia: Present on admission with worsening SOB associated with productive cough and congestion CT chest showed no evidence for pulmonary embolus. Opacified bilateral lower lobe bronchi with right greater than left patchy airspace opacities. Elevated WBC on admission Received IV Unasyn and IV solumerol in the ER Continue Amoxicillin BID Blood cx no growth Continue Neb treatment, guaifenesin, Hypertonic nasal saline, flutter valve, Chest PT Will add flonase BID Continue oxygen supplement for now Speech consulted recommended regular diet, with extra time for slow rate intake Pulm consult as family request to eval for bronch Continue monitor closely (2) Multiple sclerosis: (3) Functional quadriplegia secondary to MS: Stable (4) HLD (hyperlipidemia): Stable DVT px on Lovenox CODE status DNR Admission and Anticipated Discharge Date Admission Date: July 30, 2020 Subjective Pt was seen and examined for follow up of cough and SOB Pt said that she feels a slightly better today She continues to require oxygen supplement Spoke to at bedside and provided with updates Pt continues asking about PT/OT to continue to work with patient Pt would like to go home tomorrow Denies any chest pain, palpitation, dizziness and fever Review of Systems Review of Systems: All systems reviewed & are unremarkable except as noted in Subjective Physical Exam Physical Exam: General- No acute distress Head- atraumatic Eyes- PERRL, EOMI, ENT- oropharynx clear Neck- supple, no JVD Lungs- +Coarse BS Heart- regular rhythm; no murmur Abdomen- normal bowel sounds, soft, nontender Extremities- no calf tenderness Neuro- alert, oriented x 3; PERRL, EOMI; no facial palsy; no dysarthria Skin- warm & dry Results & Data Results & Data ([facility]) Vital Signs (Past 12 Hours) Vital Signs Temp Pulse Pulse Resp BP BP Pulse Ox 08/03/20 14:59 36.9 C 102 H 18 110/74 90 08/03/20 11:00 37.1 C 97 H 20 90 08/03/20 07:29 93 H 08/03/20 07:28 37.7 C H 86 22 98/65 L 92 08/03/20 07:17 88 18 93
--- NOTE | 2020-08-03 17:07 | Pulmonary Consultation ---
Date of Consultation August 03, 2020 Assessment & Plan (1) Pneumonia: CT chest 07/30/2020 personally reviewed: Bilateral lower lobe consolidative process appreciated more on the right side. Minimal mediastinal lymphadenopathy likely reactive. -- Multiple lobar Pneumonia Continue with antibiotics with anaerobic coverage Seems to be likely aspiration COVID-19 PCR negative --Acute hypoxic respiratory failure O2 supplementation to keep oxygen saturation 88-92% -- Poor cough effort Patient has very poor cough This along with possible aspiration is playing a role in the pneumonia Patient will benefit from chest vest on discharge Continue with flutter valve --MS with functional quadriplegia Plan: Continue with flutter valve and incentive spirometry Patient will benefit from chest vest on discharge. Continue with guaifenesin and chest PT Consider swallow eval if not already done There is no indication for bronchoscopy. Continue with O2 supplementation to keep oxygen saturation between 88-92% Case discussed with Dr Sen Please note the above document was generated using voice recognition software. It may contain grammatical, syntax or spelling errors.Any formal questions or concerns about the content, text or information contained within the body of this dictation should be directly addressed to the provider for clarification. (2) Hypoxia: (3) Multiple sclerosis: History of Present Illness Attending Physician: Jemima Sen MD History of Present Illness 70-year-old female past medical history of MS, cardioplegia, possible as piration, neurogenic bladder s/p suprapubic catheter, depression was admitted to the hospital because of hypoxia and bilateral pneumonia. Pulmonary consulted as patient's family requesting a possible bronchoscopy. At the time of examination patient's was in the room. She was talking in full sentences. Not in any acute distress. Asking to go home. Patient's grandchild had visited them was having respiratory symptoms. This was followed by upper respiratory symptoms in the patient with runny nose and nasal congestion. She did not complain of shortness of breath. She has been saying that sometimes when she drinks coffee in the morning she chokes on it. There have been instances when she eats she coughs. Denies any headache, no nausea or vomiting. No diarrhea. No abdominal pain. Last time when she had symptoms like this she had a bronchoscopy done. And was asking whether this is indicated. Social history: Non-smoker. No history of asthma. Allergies Allergy/AdvReac Type Severity Reaction Status Date / Time Sulfa (Sulfonamide Allergy Unknown BACTRIM--RA Verified 07/30/20 17:01 Antibiotics) SH Home Medications Medication Instructions Recorded Confirmed Type water for irrigation, sterile 1,000 ml IRRIGATION DAILY PRN ml 03/31/20 History alendronate 70 mg PO .WK 07/30/20 07/30/20 History ascorbic acid (vitamin C) 0 mg PO DAILY 07/30/20 07/30/20 History atorvastatin 40 mg PO DAILY 07/30/20 07/30/20 History diazepam 10 mg PO HS 07/30/20 07/30/20 History gabapentin 300 mg PO BID 07/30/20 07/30/20 History lutein 0 mg PO DAILY 07/30/20 07/30/20 History menthol-zinc oxide [Calmoseptine] 1 applic TOPICAL QID PRN 07/30/20 07/30/20 History polyethylene glycol 3350 See Rx Instructions .ROUTE .COMPLEX 07/30/20 History potassium citrate 10 meq PO TID 07/30/20 07/30/20 History tizanidine 2 mg PO DAILY 07/30/20 07/30/20 History Patient History Medical History (Updated 07/30/20 @ 20:05 by Yazan Barrett) Functional quadriplegia secondary to MS HLD (hyperlipidemia) Multiple sclerosis Suprapubic catheter Urinary retention Surgical History (Updated 07/30/20 @ 19:59 by Nicole Clark PA-C) History of bladder surgery Family History (Updated 07/30/20 @ 20:00 by Nicole Clark PA-C) Sister Schizophrenia Social History (Updated 07/30/20 @ 20:01 by Nicole Clark PA-C) Smoking Status: Never smoker Second Hand Exposure: No; Do You Dip or Chew Tobacco: No; Hx Alcohol Use: Yes Alcohol type: beer Alcohol Intake Frequency: 2-4 x/Month Hx Substance Use: No Preferred Language: Kinyarwanda Communication Ability: Effective Setter Out Required: No Beliefs That Will Affect Care: None Current Living Situation: Spouse Feels Safe at Home: Yes Safety Concerns: Feels Safe At This Time Assistive Devices: Glasses and Oxygen - Continuous Review of Systems Review of Systems: All systems reviewed & are unremarkable except as noted in HPI & below Physical Exam Physical Exam: Constitutional: No acute distress HEENT: EOMI, PERRLA Respiratory system: Decreased air entry bilaterally, no wheeze, rhonchi, positive crackles bilateral lower lobes CVS: S1-S2 positive, no murmurs or gallops Abdomen: Soft, nontender, nondistended, positive bowel sounds x4 Extremities: +2 pulses bilaterally radialis/ dorsalis pedis, no cyanosis, no edema, functional quadriplegia Neuro: Awake alert oriented x3 Psych: Normal mood and affect G/U: Positive suprapubic catheter Skin: no rashes, warm and dry Lymphatic: no cervical or axillary lymphadenopathy Results & Data Results & Data ([facility]) Vital Signs (Past 12 Hours) Vital Signs Temp Pulse Pulse Resp BP BP Pulse Ox 08/03/20 14:59 36.9 C 102 H 18 110/74 90 08/03/20 11:00 37.1 C 97 H 20 90 08/03/20 07:29 93 H 08/03/20 07:28 37.7 C H 86 22 98/65 L 92 08/03/20 07:17 88 18 93 08/03/20 10:32 08/01/20 08:02 PG Care Time/CCT Total # of Minutes Spent Total Time Spent with Patient: Total time spent is greater than 50% in coordination of care (as documented) at patient's floor/unit and/or counseling patient: Coding Level of Care Code 62981 Initial Inpt Care Lvl 3 Diagnoses Pneumonia J18.9 Hypoxia R09.02 Multiple sclerosis G35
[2020-08-03] MEDS: tiZANidine HCL 4 MG TABLET PO SCH (20:29)
[2020-08-03] MEDS: diazePAM 5 MG TABLET PO SCH (20:32)
[2020-08-04] MEDS: SODIUM CHLORIDE 0.65% NA SOLN 45 ML (OCEAN) SCH ×3 (05:48→12:49)
[2020-08-04] MEDS: FLUTICASONE PROPIONATE NA SPR 16 GM BTL SCH (05:48)
[2020-08-04 07:03] LABS: Hematocrit (blood only) 37.1 % (37-47); Hemoglobin 12.2 g/dL (12.0-16.0); Mean Corpuscular Hemoglobin 31.2 pg (25-34); Mean Corpuscular Hgb Conc 32.9 g/dL (32-36); Mean Corpuscular Volume 94.9 fL (80-100); Mean Platelet Volume 9.5 fL (7.4-10.4); Platelet Count 454 K/uL (130-400); RDW Coefficient of Variation 15.5 % (11.5-14.5); Red Blood Count 3.91 M/uL (4.2-5.4); White Blood Count 12.81 K/uL (4.8-10.8)
[2020-08-04] MEDS: IPRATROPIUM BROMIDE NEB SOLN 0.02% 2.5 ML VIAL INH PRN (07:33)
[2020-08-04] MEDS: LEVALBUTEROL 1.25MG/0.5ML NEB INH PRN (07:34)
[2020-08-04] MEDS: SODIUM CHLOR 7% 4 ML NEB NEB SCH (07:34)
[2020-08-04] MEDS: guaiFENesin SUGAR FREE 200 MG/10 ML UDC PO PRN (08:51)
[2020-08-04] MEDS: ATORVASTATIN 40 MG TAB PO SCH (08:51)
[2020-08-04] MEDS: AMOXICILLIN/CLAVULANATE 875 MG TAB PO SCH ×2 (08:51→16:51)
[2020-08-04] MEDS: GABAPENTIN 300 MG CAP PO SCH (08:52)
[2020-08-04] MEDS: ENOXAPARIN INJ 40 MG/0.4 ML SYR SQ SCH ×2 (08:52→08:59)
--- NOTE | 2020-08-04 12:44 | Pulmonology Progress Note ---
Date of Service August 04, 2020 Assessment & Plan (1) Pneumonia: CT chest 07/30/2020 personally reviewed: Bilateral lower lobe consolidative process appreciated more on the right side. Minimal mediastinal lymphadenopathy likely reactive. -- Multiple lobar Pneumonia Continue with antibiotics with anaerobic coverage Seems to be likely aspiration COVID-19 PCR negative --Acute hypoxic respiratory failure O2 supplementation to keep oxygen saturation 88-92% -- Poor cough effort Patient has very poor cough This along with possible aspiration is playing a role in the pneumonia Patient will benefit from chest vest on discharge Continue with flutter valve --MS with functional quadriplegia Plan: Continue with flutter valve and incentive spirometry Patient will benefit from chest vest on discharge. Continue with Chest PT There is no indication for bronchoscopy. Continue with O2 supplementation to keep oxygen saturation between 88-92% Case discussed with Dr Cai Please note the above document was generated using voice recognition software. It may contain grammatical, syntax or spelling errors.Any formal questions or concerns about the content, text or information contained within the body of this dictation should be directly addressed to the provider for clarification. (2) Hypoxia: (3) Multiple sclerosis: Admission and Anticipated Discharge Date Admission Date: July 30, 2020 Subjective Patient seen and examined at bedside. No acute distress, no adverse events overnight. Patient states she is feeling much better compared to when she came to the hospital. She is coughing after getting the hypertonic saline. She is not using a flutter valve as she needs help with it She has been using the chest vest therapy. Denies any chest pain, no dizziness, no headache, no nausea, no vomiting. Cough is decreased in intensity and frequency. Review of Systems Review of Systems: All systems reviewed & are unremarkable except as noted in Subjective Physical Exam Physical Exam: Constitutional: No acute distress HEENT: EOMI, PERRLA Respiratory system: Decreased air entry bilaterally, no wheeze, rhonchi, positive crackles RLL CVS: S1-S2 positive, no murmurs or gallops Abdomen: Soft, nontender, nondistended, positive bowel sounds x4 Extremities: +2 pulses bilaterally radialis/ dorsalis pedis, no cyanosis, no edema, functional quadriplegia Neuro: Awake alert oriented x3 Psych: Normal mood and affect G/U: Positive suprapubic catheter Skin: no rashes, warm and dry Lymphatic: no cervical or axillary lymphadenopathy Results & Data Results & Data ([facility]) Vital Signs (Past 12 Hours) Vital Signs Temp Pulse Pulse Resp BP Pulse Ox 08/04/20 07:59 37 C 93 H 18 111/73 92 08/04/20 07:43 74 20 93 08/04/20 07:00 91 H 08/04/20 04:00 36.8 C 86 18 101/60 93 08/04/20 06:44 08/01/20 08:02 PG Care Time/CCT Total # of Minutes Spent Total Time Spent with Patient: Total time spent is greater than 50% in coordination of care (as documented) at patient's floor/unit and/or counseling patient: Coding Level of Care Code 15100 Subseq Hosp Care Lvl 3 Diagnoses Pneumonia J18.9 Hypoxia R09.02 Multiple sclerosis G35
--- NOTE | 2020-08-04 16:27 | Discharge Summary ---
Date of Service August 04, 2020 Admission HPI Per Admitting Provider Patient is 70 y/o F with PMH MS with some cognitive impairment, essentially quadriplegic secondary to MS, neurogenic bladder has suprapubic catheter, HLD, depression presented to ER for shortness of breath. Reports that 5 days ago she started with rhinorrhea which progressed to nasal congestion and sinus pressure. Then started with productive cough of clear sputum. Past 2 days with noted shortness of breath which worsened today. Patient states was around her grandson who had URI symptoms as well. Patient reports 2 doses COVID-19 vaccine. Denies any noted fever or chills. Patient has noted progressive problems with swallowing dry foods over the last several years with her MS, however she denies any recent choking. Denies diaphoresis, N/V/D, ESPINOZA, dizziness, syncope, vision changes, neck pain, CP, palpitations, hemoptysis, otalgia, abdominal pain, extremity edema, rashes, noted hematuria or cloudy urine. In ER patient afebrile, P: 106, BP 113/77, 88% on room air up to 95% on 2 L. WBC: 22, lactate: 1.1, procalcitonin: 0.19, negative COVID-19. CTA chest: No evidence for pulmonary embolus. Opacified bilateral lower lobe bronchi with right greater than left patchy airspace opacities. In ER was given Unasyn. Patient will be admitted for further treatment and management. Principal Diagnosis MULTIPLE SCLEROSIS CHRONIC RESPIRATORY FAILURE DUE TO MULTIPLE SCLEROSIS ASPIRATION PNEUMONIA FUNCTIONAL QUADRIPLEGIA SECONDARY TO MULTIPLE SCLEROSIS Discharge Exam Constitutional WD/WN, vitals as above Eyes + anicteric sclerae ENMT external ear and nose normal, oropharynx normal Neck trachea midline, no thyromegaly Respiratory Auscultation: + diminished lung sounds Very poor respiratory effort Cardiovascular RRR, no murmur, no edema Gastrointestinal (Abdomen) Percussion/Palpation: + abdomen tender; + abdomen not soft Musculoskeletal Note paraplegia secondary to multiple sclerosis Neurologic PERRL, EOMI, accommodation nl, no face palsy, no dysarthria Functional paraplegia secondary to multiple sclerosis Psychiatric A+Ox3, euthymic affect Discharge Data Allergies Allergy/AdvReac Type Severity Reaction Status Date / Time Sulfa (Sulfonamide Allergy Unknown BACTRIM--RA Verified 07/30/20 17:01 Antibiotics) Consultations 07/30/20 18:38 ED Decision to Admit Stat 08/03/20 10:28 Consult Pulmonology Routine Ordered Studies 07/30/20 15:32 CT angio chest PE protocol Stat Hospital Course (1) Pneumonia: Aspiration pneumonia: High risk for aspiration for advanced multiple sclerosis/ Present on admission with worsening SOB associated with productive cough and congestion CT chest showed no evidence for pulmonary embolus. Opacified bilateral lower lobe bronchi with right greater than left patchy airspace opacities-digestive of aspiration Elevated WBC on admission Received IV Unasyn and IV solumerol in the ER Chronic dysphagia: Due to multiple sclerosis Speech consulted recommended regular diet, with extra time for slow rate intake Appreciate input from pulmonology, patient does not require any bronchoscopy Chronic aspiration pneumonitis secondary to musculoskeletal weakness/multiple sclerosis Remains to continue Augmentin for 10 more days And will need a flutter valve/hypertonic saline neb treatment twice daily Will need chest PT/vibration vest: Form for vibration vest filled out by pulmonology Dr. Vera Added Flonase twice daily Patient is completely bedbound, transfer to wheelchair on Katheryn lift At room air patient desaturated to 86-88% Arrangement of home O2 with 2 L with portability arranged Patient's present at bedside already has all the equipment necessary at home Prescription for nebulizer machine, home O2/Completed vibration vest requirement form given to case management Patient's and son present at bedside, care plan discussed in detail answered all questions Patient is discharged home today (2) Multiple sclerosis: (3) Functional quadriplegia secondary to MS: (4) HLD (hyperlipidemia): DVT px on Lovenox CODE status DNR Total Time Total Time Spent Total Time Spent (In Minutes): 40 minutes Total Time Includes: Examination of the Patient, Discharge Planning and Medication Reconciliation Discharge Plan Discharge Items Patient Disposition: Home - Home Health Services Reason For Visit: RESP FAILURE, SEPSIS Discharge Diagnosis: MULTIPLE SCLEROSIS CHRONIC RESPIRATORY FAILURE DUE TO MULTIPLE SCLEROSIS ASPIRATION PNEUMONIA FUNCTIONAL QUADRIPLEGIA SECONDARY TO MULTIPLE SCLEROSIS Activity: Resume your previous activity Non-emergency contact: Primary Care Provider Call non-emergency contact if: you have any medication questions Follow-up/Referrals: Danielle Yadav DO [Primary Care Provider] - Diet: Regular Addtl Attending Provider Instructions: Please take all medications as instructed on discharge list below. It is recommended that you follow-up with your primary care physician within 1-2 weeks of hospital discharge to ensure you are still doing well. Please call if you have any questions or problems. You can reach a [place] hospitalist on duty at [facility] 24 hours a day by calling [phone] [facility] Boiler Technician Provider Instructions: please Continue to use flutter valve and incentive spirometry every 2-4 hrs while awake you are prescribed to use chest vibration vest please use 0xygen 2 L via nasal canula 02/10 goal keep oxygen saturation between 88-92% you are also prescribed to Nebulizer every 6 hrs as needed for Shortness of breath concentrated Saline 7% solution via Nebulizer machine Pending Studies at Discharge: No Stand-Alone Forms: My [facility], Smoking Cessation Medications and DC Order Prescriptions: New amoxicillin-pot clavulanate [Augmentin] 875-125 mg Tablet 1 tab PO BIDM 10 Days Qty: 20 RF: 0 albuterol sulfate 1.25 mg/3 mL solution for nebulization 1.25 mg inhalation Q6H PRN (Reason: bronchospasm) Qty: 90 RF: 0 ipratropium-albuterol 0.5 mg-3 mg(2.5 mg base)/3 mL solution for nebulization 3 ml inhalation Q6H PRN (Reason: wheezing) Qty: 90 RF: 3 fluticasone propionate 50 mcg/actuation [place],Suspension 1 spray NA BID 30 Days Qty: 1 RF: 2 sodium chloride [Saline Mist] 0.65 % Aerosol,[place] 1 spray NA Q6 30 Days Qty: 1 RF: 3 sodium chloride 7 % solution for nebulization 1 inh inhalation BID Qty: 240 RF: 2 Continued water for irrigation, sterile Solution 1,000 ml irrigation DAILY PRNRF: 0 tizanidine 2 mg tablet 2 mg PO DAILY RF: 0 gabapentin 300 mg capsule 300 mg PO BID RF: 0 alendronate 70 mg tablet 70 mg PO .WK RF: 0 diazepam 10 mg tablet 10 mg PO HS RF: 0 potassium citrate 10 mEq (1,080 mg) tablet extended release 10 meq PO TID RF: 0 atorvastatin 40 mg tablet 40 mg PO DAILY RF: 0 polyethylene glycol 3350 17 gram/dose powder See Rx Instructions .ROUTE .COMPLEX RF: 0 lutein 10 mg Tablet 0 mg PO DAILY RF: 0 ascorbic acid (vitamin C) 100 mg Tablet 0 mg PO DAILY RF: 0 Calmoseptine 0.44-20.6 % Ointment 1 applic TOPICAL QID PRN (Reason: .WOUND CARE) RF: 0 Discharge Orders: Discharge Order (Routine); Ordered 08/04/20 Ordered By: Karen Cai Admission Data Admit Date/Time: 07/30/20 20:25 Attending Provider: Kraen Cai Admit Provider: Asher Bolanos Primary Care Provider: Danielle Yadav Other Providers: Asher Bolanos ; [facility] ; Jammie Vera ; Jemima Sen Other Interventions: Discharge Summary Assessment (RN) Last Done: 08/04/20 16:45
--- NOTE | 2020-08-12 10:36 | Coding Query ---
CODING QUERY To promote full compliance with coding requirements relating to patient care, provider participation is requested in all cases of digester operator helper uncertainty. Please assist us with the question(s) below: Coding Question(s): "Chronic Respiratory Failure" is documented on Discharge and "Acute Hypoxic Respiratory Failure" is documented on Pulmonary progress note and consult. Please clarify below: ( ) Patient has Chronic Respiratory Failure ( ) Patient has Acute Respiratory Failure ( x) Other Please Explain: Acute on chronic respiratory failure : pt has chronic respiratory failure due to MS ( was not diagnosed ) -per pulm the CT chest findings -appears to be acute on chronic , presented with worseing of resp failure -Acute on chronic resp failure due to Pneumonia will update /put addendum on DC summary tx sincerely Karen Cai Thank you Edgardo Spencer Principal Diagnosis: "that condition established after study, to be chiefly responsible for occasioning the admission of the patient to the hospital for care." Co-Existing Principal Diagnosis: "when two or more diagnoses equally meet the criteria for principal diagnosis as determined by the circumstances of admission, diagnostic work up, and/or therapy provided, and the Alphabetic Index, Tabular List, or another coding guideline does not provide sequencing direction, any one of the diagnoses may be sequenced first." "When the physician has documented what appears to be a current diagnosis in the body of the record, but has not included the diagnosis in the final diagnostic statement, the physician should be asked whether the diagnosis should be added." (Source Coding [facility] 2 QTR90. p3-4) [place]
== END 2020-08-04 17:55 | disposition home health service (06) | DRG 177 ==
LOC: ED 14:22 → 2W 20:25 → SUATTDRO 20:25 → 2W 21:19